=== PATIENT | female | born 1985 | race Caucasian/White ===

== ENCOUNTER 2017-01-10 22:48 | Emergency (ER) | payer OTHER, MEDICAID ==
[2017-01-11 01:21] LABS: ABSOLUTE BASOPHILS # (AUTO) 0.1 10^3/uL (0.0-0.2); ABSOLUTE EOSINOPHILS # (AUTO) 0.2 10^3/uL (0.0-0.6); ABSOLUTE LYMPHOCYTES (AUTO) 3.3 10^3/uL (0.5-4.7); ABSOLUTE MONOCYTES (AUTO) 0.9 10^3/uL (0.1-1.4); ABSOLUTE NEUT (AUTO) 5.3 10^3/uL (1.7-8.2); BASOPHILS % (AUTO) 0.6 % (0-2); EOSINOPHILS % (AUTO) 2.5 % (0-6); HEMATOCRIT 44.3 % (36.0-47.0); HEMOGLOBIN 15.6 g/dL (12.0-15.5); HGB HCT DIFFERENCE 2.5; LYMPHOCYTES % (AUTO) 33.6 % (13-45); MEAN CORPUSCULAR HEMOGLOBIN 32.7 pg (27.0-33.4); MEAN CORPUSCULAR HGB CONC 35.3 g/dL (32.0-36.0); MEAN CORPUSCULAR VOLUME 93 fl (80-97); MONOCYTES % (AUTO) 8.9 % (3-13); RED BLOOD COUNT 4.78 10^6/uL (3.72-5.28); RED CELL DISTRIBUTION WIDTH 13.1 % (11.5-14.0); SEGMENTED NEUTROPHILS % (AUTO) 54.4 % (42-78); WHITE BLOOD COUNT 9.8 10^3/uL (4.0-10.5)
[2017-01-11 01:38] LABS: ALANINE AMINOTRANSFERASE 42 U/L (9-52); ALBUMIN 3.9 g/dL (3.5-5.0); ALKALINE PHOSPHATASE 73 U/L (38-126); ANION GAP 8 (5-19); ASPARTATE AMINO TRANSFERASE 47 U/L (14-36); BILIRUBIN,DIRECT 0.2 mg/dL (0.0-0.4); BILIRUBIN,TOTAL 0.6 mg/dL (0.2-1.3); BLOOD UREA NITROGEN 10 mg/dL (7-20); CALCIUM 8.7 mg/dL (8.4-10.2); CARBON DIOXIDE 27 mmol/L (22-30); CHLORIDE 107 mmol/L (98-107); CREATININE RESULT 0.59 mg/dL (0.52-1.25); GLUCOSE 93 mg/dL (75-110); SODIUM 142.4 mmol/L (137-145); TOTAL PROTEIN 6.6 g/dL (6.3-8.2)
[2017-01-11] MEDS ORDERED: ONDANSETRON HCL INJ/PF 4 MG/2 ML SDV IV ONE (02:03)
[2017-01-11] MEDS ORDERED: MORPHINE SULFATE 10 MG/ML INJ IV ONE (02:03)
--- NOTE | 2017-01-11 02:06 | ER Document Report ---
ED GI/ - General Chief Complaint: Abdominal Pain Stated Complaint: ABDOMINAL PAIN Time seen by provider: 02:00 Notes: Patient is a 31-year-old female that comes emergency department with chief complaint of right lower abdominal/pelvic pain that is intermittent, intermittently sharp, she has a little bit of radiating discomfort to her lower back, she states that when the pain became sharp she vomited, this is happened several times, symptoms started about 3 days ago. She states she had chills earlier but no recorded fever. She also states she feels constipated and has not had a recent bowel movement. She denies any vaginal bleeding or discharge, dysuria, or diarrhea. Past medical history of partial hysterectomy with complications of the reportedly, depression. TRAVEL OUTSIDE OF THE [place] IN LAST 30 DAYS: No - Related Data Allergies/Adverse Reactions: clarithromycin [From Biaxin] Allergy (Intermediate, Verified 01/10/17 22:53) rash Penicillins Allergy (Mild, Verified 01/10/17 22:53) sulfamethoxazole [From Bactrim] Allergy (Mild, Verified 01/10/17 22:53) trimethoprim [From Bactrim] Allergy (Mild, Verified 01/10/17 22:53) surgical tape Allergy (Intermediate, Uncoded 01/10/17 22:53) rash, "painful" raw sensation at site of application Past Medical History - General Information source: Patient - Social History Smoking Status: Never Smoker Frequency of alcohol use: None Drug Abuse: None Lives with: Family Family History: CAD, CVA, DM, Hyperlipidemia, Hypertension, Malignancy Patient has suicidal ideation: No Patient has homicidal ideation: No - Past Medical History Cardiac Medical History: Denies: Hx Atrial Fibrillation, Hx Congestive Heart Failure Pulmonary Medical History: Denies: Hx Asthma, Hx Tuberculosis Neurological Medical History: Denies: Hx Cerebrovascular Accident, Hx Seizures Endocrine Medical History: Denies: Hx Diabetes Mellitus Type 2 Renal/ Medical History: Denies: Hx Peritoneal Dialysis GI Medical History: Reports: Hx Hepatitis - see above. Denies: Hx Gastroesophageal Reflux Disease, Hx Hiatal Hernia, Hx Ulcer Musculoskeltal Medical History: Reports Hx Fibromyalgia Psychiatric Medical History: Reports: Hx Depression Traumatic Medical History: Denies: Hx Fractures Infectious Medical History: Reports: Hx Hepatitis - see above Past Surgical History: Reports: Hx Section - 12/01/11, Hx Hysterectomy. Denies: Hx Pacemaker - Immunizations Hx Diphtheria, Pertussis, Tetanus Vaccination: Yes Review of Systems - Review of Systems Constitutional: No symptoms reported EENT: No symptoms reported Cardiovascular: No symptoms reported Respiratory: No symptoms reported Gastrointestinal: See HPI Genitourinary: No symptoms reported Female Genitourinary: No symptoms reported Musculoskeletal: No symptoms reported Skin: No symptoms reported Hematologic/Lymphatic: No symptoms reported Neurological/Psychological: No symptoms reported Physical Exam - Vital signs Vitals: Temp Pulse Resp BP Pulse Ox 98.3 F 81 18 104/71 97 01/10/17 22:53 01/10/17 22:53 01/10/17 22:53 01/10/17 22:53 01/10/17 22:53 Interpretation: Normal - General General appearance: Appears well, Alert In distress: None - HEENT Head: Normocephalic, Atraumatic Eyes: Normal Pupils: PERRL - Respiratory Respiratory status: No respiratory distress Chest status: Nontender Breath sounds: Normal Chest palpation: Normal - Cardiovascular Rhythm: Regular Heart sounds: Normal auscultation Murmur: No - Abdominal Inspection: Normal Distension: No distension Bowel sounds: Normal Tenderness: Tender - Tenderness in the right lower abdominal/pelvic area, no significant guarding, otherwise unremarkable abdominal exam - Back Back: Normal, Nontender. No: Tender, CVA tenderness - Extremities General upper extremity: Normal inspection, Nontender, Normal color, Normal ROM , Normal temperature General lower extremity: Normal inspection, Nontender, Normal color, Normal ROM , Normal temperature, Normal weight bearing. No: Laura's sign - Neurological Neuro grossly intact: Yes Cognition: Normal Orientation: AAOx4 [place] Coma Scale Eye Opening: Spontaneous [place] Coma Scale Verbal: Oriented [place] Coma Scale Motor: Obeys Commands [place] Coma Scale Total: 15 Speech: Normal Motor strength normal: LUE, RUE, LLE, RLE Sensory: Normal - Psychological Associated symptoms: Normal affect, Normal mood - Skin Skin Temperature: Warm Skin Moisture: Dry Skin Color: Normal Course - Re-evaluation Re-evalutation: On initial examination patient has some pain in the right lower abdomen/pelvis, there is no guarding but there is tenderness. Otherwise unremarkable abdomen. Ultrasound is unremarkable with no evidence of ovarian cyst or torsion, no free fluid, CBC, chemistry, urinalysis unremarkable. Patient's symptoms have been going on for almost 3 days. Patient admits she is constipated. On reevaluation patient is stating that now she has significant pain in her right upper abdomen, on evaluation there appears to be tenderness, patient states this is where the pain was the whole time. I reminded her that the pain was in the lower abdomen, she states she is unsure now. Discussed that this is most likely bowel related because of the different areas of pain, normal workup, and her examination. Patient persisted and insisted that she has significant pain in her right upper quadrant area and she wants this evaluated. Patient was sent for an ultrasound which was unremarkable. Patient was discussed with Dr. Zamora. On reevaluation patient is doing well, states she is ready to leave, very satisfied with her workup, denies any current symptoms other than some cramping. Patient will be placed on stool softener, provide with nausea medication, I suspect there is a combination of virus, constipation, or other nonemergent etiology based on her evaluation here tonight. Discussed return precautions in detail, patient states understanding and agreement. - Vital Signs Vital signs: Temp Pulse Resp BP Pulse Ox 97.9 F 77 16 105/61 95 01/11/17 07:30 01/11/17 07:30 01/11/17 07:30 01/11/17 07:30 01/11/17 07:30 - Laboratory Result Diagrams: 01/11/17 00:58 01/11/17 00:58 Laboratory results interpreted by me: 01/11/17 01/11/17 00:58 00:58 Hgb 15.6 H AST 47 H Discharge - Discharge Clinical Impression: Abdominal pain Qualifiers: Abdominal location: generalized Qualified Code(s): R10.84 - Generalized abdominal pain Vomiting Qualifiers: Vomiting type: unspecified Vomiting Intractability: non-intractable Nausea presence: with nausea Qualified Code(s): R11.2 - Nausea with vomiting, unspecified Condition: Stable Disposition: HOME, SELF-CARE Additional Instructions: I recommend drinking at least part of the magnesium citrate given at home today to help move her bowels, drink plenty of fluids, take Zofran if needed for nausea, taking the Colace over the next couple of days if needed in addition to this as a stool softener. Afterwards stop stool softeners, increase fiber in diet. Follow-up with primary care. Return to the emergency department for any concerning or worsening symptoms including fever, uncontrolled vomiting, return or worsening pain, or any other concerning symptoms. Prescriptions: Docusate Sodium [Colace 100 mg Capsule] 100 mg PO DAILY #30 capsule Ondansetron [Zofran Odt 4 mg Tablet] 1 - 2 tab PO Q4H PRN #20 tab.rapdis PRN Reason: For Nausea/Vomiting Referrals: HANSEL SANTOS MD [Primary Care Provider] - Follow up as needed
[2017-01-11 02:14] LABS: APPEARANCE,URINE CLEAR; BILIRUBIN,URINE NEGATIVE (NEGATIVE); GLUCOSE, URINE NEGATIVE (NEGATIVE); KETONES,URINE NEGATIVE (NEGATIVE); LEUKOCYTE ESTERASE,URINE NEGATIVE (NEGATIVE); NITRITE,URINE NEGATIVE (NEGATIVE); PROTEIN,URINE NEGATIVE (NEGATIVE); URINE SPECIFIC GRAVITY 1.005; UROBILINOGEN,URINE NEGATIVE mg/dL (<2.0)
[2017-01-11] MEDS ORDERED: OXYCODONE-ACETAMINOPHEN 5-325 MG TABLET PO ONE (03:14)
[2017-01-11] MEDS ORDERED: KETOROLAC TROMETHAMINE INJ/PF 30 MG/1 ML SDV IV ONE (05:13)
[2017-01-11] MEDS ORDERED: MAGNESIUM CITRATE 296 ML BOTTLE PO ONE (06:52)
[2017-01-11] MEDS ORDERED: ONDANSETRON ODT 4 MG TAB (6 TAB/DSPK) PO PRN (06:54)
[2017-01-11 07:33] VITALS: BP 105/61
== END 2017-01-11 07:30 | disposition home or self-care (01) ==
LOC: ER 22:48
DX: R10.84 Generalized abdominal pain (principal); R11.2 Nausea with vomiting, unspecified; R10.2 Pelvic and perineal pain; Z88.3 Allergy status to other anti-infective agents; Z88.2 Allergy status to sulfonamides; Z88.0 Allergy status to penicillin; Z90.710 Acquired absence of both cervix and uterus
CPT/HCPCS: 99284; 96374; 96375; 36415; 85025; 81025; 80053; 81001; 76705; 76830; 93976; J3490; J1885; J2270; J2405

== ENCOUNTER → 2017-03-24 | Outpatient (CLI) | payer OTHER, MEDICAID | LOC: LAB 16:16 | PROVIDERS: ATTEND Emergency Medicine | DX: L29.8 Other pruritus (principal); M54.89 Other dorsalgia; N39.0 Urinary tract infection, site not specified; R30.0 Dysuria | CPT/HCPCS: 87086 ==